=== PATIENT | male | born 1950 | race Caucasian/White ===

== ENCOUNTER 2019-04-08 11:54 | Observation (INO) | payer BC, MEDICARE ==
[~2019-04-08] VITALS: Ht 177.8 cm; Wt 73.6 kg
[2019-04-08] VITALS (12 sets, daily range): BP systolic 132–166; BP diastolic 60–84
[2019-04-08 12:33] LABS: BASO # 0.1 10^3/uL (0.0-0.2); BASO % 1.1 % (0.0-1.0); EOS % 0.5 % (0.0-3.0); HEMATOCRIT 22.7 % (42.0-52.0); LYMPH # 0.8 10^3/uL (1.5-5.0); LYMPH % 14.5 % (24.0-44.0); MEAN CORPUSCULAR HEMOGLOBIN 20.9 pg (27.0-33.0); MEAN CORPUSCULAR HGB CONC 28.6 g/dl (32.0-36.5); MONO # 0.5 10^3/uL (0.0-0.8); MONO % 8.4 % (0.0-5.0); NEUTROPHILS # 4.1 10^3/uL (1.5-8.5); NEUTROPHILS % 75.3 % (36.0-66.0); PLATELET COUNT, AUTOMATED 280 10^3/uL (150-450); RED BLOOD COUNT 3.11 10^6/uL (4.30-6.10); WHITE BLOOD COUNT 5.5 10^3/uL (4.0-10.0)
[2019-04-08 12:40] LABS: HEMOGLOBIN 6.5 g/dl (13.5-17.5)
[2019-04-08 12:42] LABS: INR 1.14; PARTIAL THROMBOPLASTIN TIME 25.6 SECONDS (25.0-38.4); PROTHROMBIN TIME 14.4 SECONDS (11.8-14.0)
[2019-04-08 13:02] LABS: ALBUMIN 3.8 GM/DL (3.2-5.2); ALT/SGPT 27 U/L (12-78); BILIRUBIN,DIRECT 0.3 MG/DL (0.0-0.2); BILIRUBIN,TOTAL 1.2 MG/DL (0.2-1.0); BLOOD UREA NITROGEN 18 MG/DL (7-18); CALCIUM LEVEL 9.1 MG/DL (8.8-10.2); CARBON DIOXIDE LEVEL 26 MEQ/L (21-32); CHLORIDE LEVEL 109 MEQ/L (98-107); CREATININE FOR GFR 1.15 MG/DL (0.70-1.30); GLOMERULAR FILTRATION RATE > 60.0 (>49); GLUCOSE, FASTING 154 MG/DL (70-100); POTASSIUM SERUM 4.4 MEQ/L (3.5-5.1); SODIUM LEVEL 141 MEQ/L (136-145); TOTAL PROTEIN 6.5 GM/DL (6.4-8.2)
[2019-04-08] MEDS ORDERED: SIMV20TA2 PO (13:19)
[2019-04-08] MEDS ORDERED: EZET10TA21 PO (13:19)
[2019-04-08] MEDS ORDERED: CLAR10CA3 PO (13:43)
[2019-04-08] MEDS ORDERED: ALEV220T22 PO (13:43)
[2019-04-08] MEDS ORDERED: SIMV40TA2 PO (13:43)
[2019-04-08] MEDS ORDERED: ASPI81TA85 PO (13:43)
[2019-04-08] MEDS ORDERED: TUMS500C PO (13:43)
[2019-04-08 14:00] LABS: CK-MB VALUE MASS 1.6 NG/ML (<3.6); CPK CREATINE PHOSPHOKINASE 91 U/L (39-308); MB/CK RELATIVE INDEX 1.76 (< OR =4); TROPONIN I < 0.02 NG/ML (< 0.10)
[2019-04-08] MEDS ORDERED: CALCIUM CARBONATE 500 MG CHEW U/D PO PRN (14:30)
[2019-04-08 15:12] LABS: FERRITIN 4 NG/ML (26-388); IRON (FE) 25 UG/DL (65-175); PERCENT SATURATION 5.3 % (19.7-50.0); TOTAL IRON BINDING CAPACITY 476 UG/DL (250-450)
--- NOTE | 2019-04-08 15:22 | HPEPDOC ---
[facility] Medical History & Physical Date of Admission Apr 08, 2019 Date of Service: Apr 08, 2019 History and Physical CHIEF COMPLAINT: Shortness of breath HISTORY OF PRESENT ILLNESS: This is a patient is a 68-year-old man for the last several weeks as he progressively worsening dyspnea on exertion as well as some increased fatigue and lightheadedness upon standing. He believed that he had Lyme disease and went to his primary care provider who did check blood work several days ago he was notified today that his hemoglobin was quite low and presented to the hospital. He tells me that earlier this morning she was working with his chainsaw cutting down trees and although somewhat short of breath he is still remained quite active without difficulty. The patient denies any recent dark tarry stools. He has had a history of using NSAIDs he takes Aleve twice a day as well as a baby aspirin. He does have some intermittent indigestion but nothing worse or significant change in the recent past. Otherwise patient denies weight loss, hair loss, headache, visual changes, chest pain, cough, nausea, vomiting, diarrhea, abdominal pain, muscle aches, worsening arthritis, change in mood PAST MEDICAL HISTORY: 1 dyslipidemia. 2 sciatica. 3 heartburn. HOME MEDICATIONS: Please see below. ALLERGIES: Please see below PAST SURGICAL HISTORY: 1 left shoulder arthroscopy. 2 right knee surgery. 3 microdiscectomy For lipoma removal. SOCIAL HISTORY: Lives with: Debilitated who has MS for whom he is the primary caregiver, Employment: Retired nurse healthcare manager of [employer], Tobacco use: 10 pack year history quit 38 years ago. ETOH: 2 drinks per day, Illicit d rug use: Denies, CODE STATUS: Full code FAMILY HISTORY:Reviewed and noncontributory REVIEW OF SYSTEMS: 10 systems reviewed and negative other than HPI PHYSICAL EXAMINATION: VITAL SIGNS: Temperature 97.9, pulse 86, respiratory rate 20, blood pressure 162/78, pulse oximetry 100 % on room air. GENERAL: Pleasant slim man sitting up wearing street close seated in a chair awake alert oriented speaking in complete sentences no acute distress he appears only mildly pallorous HEENT: Moist mucous membranes no elevation in CVP CARDIOVASCULAR: S1 S2 regular no additional heart sounds appreciated. RESPIRATORY: Clear to auscultation bilaterally. ABDOMINAL: Bowel sounds present abdomen soft and nontender U to deep palpation EXTREMITIES: No clubbing cyanosis or edema NEUROLOGICAL: Spontaneously moves all 4 extremities cranial 2 through 12 grossly intact no gross focal deficits appreciated PSYCHOLOGICAL: Appropriate LABORATORY DATA: See below. MICROBIOLOGY: Please see below. IMAGING: None ASSESSMENT & PLAN: This is a 68-year-old man who presents to symptomatic anemia likely secondary to GI losses. PROBLEMS: 1 symptomatic anemia: Likely secondary to GI losses was reportedly occult stool for positive positive in the emergency room and I will check iron studies provided with iron supplementation he is microcytic in nature given the degree of his low hemoglobin and mild dizziness symptoms I suspect this is a slow progressive bleed for which his body has adjusted quite well. He has been consented in the emergency room and we will be transfusing 2 units of PRBCs. I suspect may be related to his NSAID usage. I will hold any further relief continue with the baby aspirin primary gabapentin in place of this. He recently had a colonoscopy 2 years ago and during which he was told it was completely normal he had 1 small rectal polyp that was removed this was completed at his home in [place]. Patient prefers home as soon as possible in order to care for his debilitated his son will stay with her this evening. We'll monitor him overnight and reevaluate his hemoglobin in the a.m. he would likely benefit from further evaluation with repeat colonoscopy and endoscopy. I'll provide him with a PPI as well as Carafate and a clear liquid diet for now and check his orthostatics 2 sciatica: We are holding Aleve upright with gabapentin. 3 dyslipidemia with continue with 60 mg of atorvastatin. As well as his sodium 4 seasonal allergies: We'll provide him with Claritin. DVT PROPHYLAXIS: Compression stockings encourage ambulation [facility]ITION: [facility] This note was generated in part or whole with a voice recognition software. Voice recognition is usually quite accurate but often errors do occur. I apologize for any typographical errors that were not detected and corrected. Vital Signs Vital Signs Date Time Temp Pulse Resp B/P (MAP) Pulse Ox O2 Delivery O2 Flow Rate FiO2 04/08/19 14:43 97.9 86 20 162/78 100 Room Air Laboratory Data Labs 24H Laboratory Tests 2 04/08/19 12:21: Immature Granulocyte % (Auto) 0.2, Neutrophils (%) (Auto) 75.3H, Lymphocytes (%) (Auto) 14.5L, Monocytes (%) (Auto) 8.4H, Eosinophils (%) (Auto) 0.5, Basophils (%) (Auto) 1.1H, Neutrophils # (Auto) 4.1, Lymphocytes # (Auto) 0.8L, Monocytes # (Auto) 0.5, Eosinophils # (Auto) 0.0, Basophils # (Auto) 0.1, Nucleated Red Blood Cells % (auto) 0.0, Prothrombin Time 14.4H, Prothromb Time International Ratio 1.14, Activated Partial Thromboplast Time 25.6, Anion Gap 6L, Glomerular Filtration Rate > 60.0, Calcium Level 9.1, Iron Level 25L, Total Iron Binding Capacity 476H, Transferrin % Saturation 5.3L, Ferritin 4L, Total Bilirubin 1.2H, Direct Bilirubin 0.3H, Aspartate Amino Transf (AST/SGOT) 24, Alanine Aminotransferase (ALT/SGPT) 27, Alkaline Phosphatase 48, Total Creatine Kinase 91, Creatine Kinase MB 1.6, Creatine Kinase MB Relative Index 1.76, Troponin I < 0.02, Total Protein 6.5, Albumin 3.8, Albumin/Globulin Ratio 1.41 04/08/19 12:28: POC Glucose (Misc Panel) 150H, POC Sodium (Misc Panel) 139, POC Potassium (Misc Panel) 4.2, POC Chloride (Misc Panel) 103, POC Total CO2 (Misc Panel) 24.0, POC Blood Urea Nitrogen (Misc Panel 17, POC Ionized Calcium (Misc Panel) 4.7, POC Creatinine (Misc Panel) 1.1, POC Hematocrit (Misc Panel) 21.0L CBC/BMP Laboratory Tests 04/08/19 12:21 Home Medications Scheduled Aspirin (Aspir 81) 81 Mg Tablet.dr, 81 MG PO DAILY Ezetimibe (Ezetimibe) 10 Mg Tablet, 10 MG PO DAILY Loratadine (Claritin) 10 Mg Capsule, 10 MG PO QHS Naproxen Sodium (Aleve) 220 Mg Tablet, 220 MG PO BID Simvastatin (Simvastatin) 20 Mg Tablet, 20 MG PO DAILY TAKES WITH 40MG DOSE FOR 60MG TOTAL DAILY DOSE Simvastatin (Simvastatin) 40 Mg Tablet, 40 MG PO DAILY TAKES WITH 20MG DOSE FOR 60MG TOTAL DAILY DOSE Scheduled PRN Calcium Carbonate (Tums) 200 Mg Tab.chew, 500 MG PO for HEARTBURN/INDIGESTION Allergies Coded Allergies: No Known Allergies (Unverified , 04/08/19) A-FIB/CHADSVASC A-FIB History Current/History of A-Fib/PAF?: No RENITA JONES MD Apr 08, 2019 15:22
[2019-04-08] MEDS: GABAPENTIN 100 MG CAP PO SCH ×2 (16:33→20:47)
[2019-04-08] MEDS: SUCRALFATE 1 GM TAB PO SCH ×2 (16:33→20:47)
[2019-04-08] MEDS: PANTOPRAZOLE 40MG INJ (PROTONIX) (C9113) IV SCH ×2 (18:13→20:47)
[2019-04-08 19:28] LABS: HEMATOCRIT 27.3 % (42.0-52.0); HEMOGLOBIN 8.1 g/dl (13.5-17.5)
[2019-04-08] MEDS: FERROUS SULFATE 325MG TAB PO SCH (20:47)
[2019-04-08] MEDS ORDERED: LORATADINE 10 MG TAB PO SCH (21:00)
[2019-04-09 06:00] VITALS: BP 121/65
[2019-04-09 06:20] LABS: HEMATOCRIT 26.6 % (42.0-52.0); HEMOGLOBIN 8.1 g/dl (13.5-17.5); MEAN CORPUSCULAR HEMOGLOBIN 22.4 pg (27.0-33.0); MEAN CORPUSCULAR HGB CONC 30.5 g/dl (32.0-36.5); MEAN CORPUSCULAR VOLUME 73.7 fl (80.0-96.0); PLATELET COUNT, AUTOMATED 261 10^3/uL (150-450); RED BLOOD COUNT 3.61 10^6/uL (4.30-6.10); WHITE BLOOD COUNT 4.6 10^3/uL (4.0-10.0)
[2019-04-09 06:47] LABS: BLOOD UREA NITROGEN 10 MG/DL (7-18); CALCIUM LEVEL 8.4 MG/DL (8.8-10.2); CARBON DIOXIDE LEVEL 25 MEQ/L (21-32); CHLORIDE LEVEL 112 MEQ/L (98-107); CREATININE FOR GFR 0.97 MG/DL (0.70-1.30); GLOMERULAR FILTRATION RATE > 60.0 (>49); GLUCOSE, FASTING 87 MG/DL (70-100); POTASSIUM SERUM 3.8 MEQ/L (3.5-5.1); SODIUM LEVEL 143 MEQ/L (136-145)
[2019-04-09 06:57] VITALS: BP_SYST 129; BP_SYST 130; BP_SYST 131; BP_DIAS 75; BP_DIAS 76; BP_DIAS 78
[2019-04-09] MEDS: GABAPENTIN 100 MG CAP PO SCH (08:38)
[2019-04-09] MEDS: FERROUS SULFATE 325MG TAB PO SCH (08:38)
[2019-04-09] MEDS: PANTOPRAZOLE 40MG INJ (PROTONIX) (C9113) IV SCH (08:39)
[2019-04-09] MEDS: SUCRALFATE 1 GM TAB PO SCH (08:39)
[2019-04-09] MEDS ORDERED: SIMVASTATIN 40 MG TAB PO SCH (09:00)
[2019-04-09] MEDS ORDERED: ASPIRIN 81 MG ENTERIC TAB PO SCH (09:00)
[2019-04-09] MEDS ORDERED: SIMVASTATIN 20 MG TAB PO SCH (09:00)
[2019-04-09] MEDS ORDERED: EZETIMIBE 10 MG TAB (ZETIA) PO SCH (09:00)
[2019-04-09] MEDS ORDERED: PROT1TAB2 PO ×2 (09:53→10:11)
[2019-04-09] MEDS ORDERED: FERR325T18 PO (09:53)
[2019-04-09] MEDS ORDERED: GABA-1171 PO (09:53)
--- NOTE | 2019-04-09 10:51 | DS.PDOC ---
Discharge Summary General Date of Admission Apr 08, 2019 at 11:55 Date of Discharge 04/09/2019 Attending Physician: RENITA JONES MD Discharge Summary PROCEDURES PERFORMED DURING STAY: None. ADMITTING DIAGNOSES: 1. Symptomatic anemia secondary to GI loss. 2. Sciatica. 3. Dyslipidemia. DISCHARGE DIAGNOSES: 1. Symptomatic anemia secondary to GI loss and iron deficiency. 2. Sciatica. 3. Dyslipidemia. COMPLICATIONS/CHIEF COMPLAINT: Gi Bleed. HISTORY OF PRESENT ILLNESS: 68-year-old male who presented with 1 month history of progressively worsening fatigue, lightheadedness upon standing, and dyspnea on exertion. He states he was concerned that his symptoms were due to Lyme dise ase and he saw his PCP who ordered some blood tests. He states he received a call to the emergency room due to a low hemoglobin level. He has a history of NSAID use with Aleve twice daily for sciatica pain in his right leg. Otherwise, he denied weight loss, hair loss, headache, visual changes, chest pain, cough, nausea, vomiting, diarrhea, abdominal pain, muscle aches, worsening arthritis, change in mood. Laboratory testing revealed an H&H of 6.5/22.7. HOSPITAL COURSE: Patient was admitted for observation and was transfused with 2 units packed red blood cells. His H&H improved to 8.1/27.3. His home Aleve was held due to its association with gastric ulcers. Dr. Colud was consult to consider upper endoscopy and it was decided he should follow up for this in the outpatient setting with his own cash grain farmer. Patient was also started on Protonix twice a day which she will continue on discharge. For his right sciatica pain, the patient was started on gabapentin and can follow up to ti trate up on this as needed with his primary care physician. Iron studies also revealed iron deficiency anemia, which could contribute to his overall symptomatic anemia. The patient was started on oral iron supplementation and will continue this upon discharge. On day of discharge, the patient was found to be stable and safe for discharge. DISCHARGE MEDICATIONS: Please see below. ALLERGIES: Please see below. PHYSICAL EXAMINATION ON DISCHARGE: VITAL SIGNS: Please see below. GENERAL: Alert, comfortable, in no acute distress HEENT: Normocephalic, atraumatic, PERRLA, EOMI, moist mucous membranes NECK: Supple, trachea midline, no lymphadenopathy, no JVD CARDIOVASCULAR: Regular rate and rhythm, normal S1 and S2. No murmurs, rubs, or gallops RESPIRATORY: Clear to auscultation bilaterally with equal air entry bilaterally. No wheezing, rhonchi, or rales. ABDOMEN: Soft, nontender, nondistended, bowel sounds present, no masses or hepatosplenomegaly appreciated EXTREMITIES: No cyanosis or edema. Pulses 2+/4 in bilateral upper and lower extremities SKIN: [place], warm, dry NEUROLOGIC: Alert and oriented 3 to person, place and time. Cranial nerves 2-12 grossly intact. No focal deficits appreciated PSYCHIATRIC: Mood and affect appropriate LABORATORY DATA: Please see below. IMAGING: None PROGNOSIS: Good ACTIVITY: As tolerated. DIET: As tolerated DISCHARGE PLAN: Home DISPOSITION: Home. DISCHARGE INSTRUCTIONS: 1. Follow-up with your PCP in 7-10 days 2. Stop taking Aleve and continue taking the gabapentin which was started in the hospital for your sciatica pain. 3. Continue taking iron supplement and Protonix twice daily, which were started in the hospital 4. Follow up for EGD with your cash grain farmer in 1-2 weeks 5. If your symptoms return or your condition worsens, please call your PCP or return to the ED for further evaluation. ITEMS TO FOLLOWUP ON ON OUTPATIENT: 1. Anemia - suggest follow up with H/H, continue iron supplement 2. GI bleed - follow up with GI doctor for EGD within the next 1-2 weeks, continue PPI therapy twice a day 3. Sciatica - Avoid NSAIDs in the setting of GI bleed, consider continuing Gabapentin and titrating up on this or re-evaluate for other treatment options. DISCHARGE CONDITION: Stable. I saw and evaluated the patient. I agree with the findings and plan of care as documented in the documenters note. I spent 45 minutes coordinating this patient's discharge. Vital Signs/I&Os Vital Signs Date Time Temp Pulse Resp B/P (MAP) Pulse Ox O2 Delivery O2 Flow Rate FiO2 04/09/19 06:57 76 131/78 (95) 80 130/76 (94) 81 129/75 (93) 04/09/19 06:00 98.1 18 98 Room Air I&O- Last 24 Hours up to 6 AM 04/09/19 06:00 Intake Total 1710 ml Output Total 2500 ml Balance -790 ml Laboratory Data Labs 24H Laboratory Tests 2 04/08/19 11:55: Lab Scanned Report LAB OTHER 04/08/19 12:21: Immature Granulocyte % (Auto) 0.2, Neutrophils (%) (Auto) 75.3H, Lymphocytes (%) (Auto) 14.5L, Monocytes (%) (Auto) 8.4H, Eosinophils (%) (Auto) 0.5, Basophils (%) (Auto) 1.1H, Neutrophils # (Auto) 4.1, Lymphocytes # (Auto) 0.8L, Monocytes # (Auto) 0.5, Eosinophils # (Auto) 0.0, Basophils # (Auto) 0.1, Reticulocyte # (auto) 42.7, Nucleated Red Blood Cells % (auto) 0.0, Percent Reticulocyte Count 1.4, Reticulocyte Hemoglobin Equivalent 14.7L, Prothrombin Time 14.4H, Prothromb Time International Ratio 1.14, Activated Partial Thromboplast Time 25.6, Anion Gap 6L, Glomerular Filtration Rate > 60.0, Calcium Level 9.1, Iron Level 25L, Total Iron Binding Capacity 476H, Transferrin % Saturation 5.3L, Ferritin 4L, Total Bilirubin 1.2H, Direct Bilirubin 0.3H, Aspartate Amino Transf (AST/SGOT) 24, Alanine Aminotransferase (ALT/SGPT) 27, Alkaline Phosphatase 48, Total Creatine Kinase 91, Creatine Kinase MB 1.6, Creatine Kinase MB Relative Index 1.76, Troponin I < 0.02, Total Protein 6.5, Albumin 3.8, Albumin/Globulin Ratio 1.41 04/08/19 12:28: POC Glucose (Misc Panel) 150H, POC Sodium (Misc Panel) 139, POC Potassium (Misc Panel) 4.2, POC Chloride (Misc Panel) 103, POC Total CO2 (Misc Panel) 24.0, POC Blood Urea Nitrogen (Misc Panel 17, POC Ionized Calcium (Misc Panel) 4.7, POC Creatinine (Misc Panel) 1.1, POC Hematocrit (Misc Panel) 21.0L 04/09/19 05:54: Nucleated Red Blood Cells % (auto) 0.0, Anion Gap 6L, Glomerular Filtration Rate > 60.0, Calcium Level 8.4L CBC/BMP Laboratory Tests 04/08/19 12:21 04/08/19 19:02 04/09/19 05:54 Discharge Medications Scheduled Aspirin (Aspir 81) 81 Mg Tablet.dr, 81 MG PO DAILY, (Reported) Ezetimibe (Ezetimibe) 10 Mg Tablet, 10 MG PO DAILY, (Reported) Ferrous Sulfate (Ferrous Sulfate) 325 Mg Tablet, 325 MG PO BID Gabapentin (Gabapentin) 100 Mg Capsule, 100 MG PO TID Loratadine (Claritin) 10 Mg Capsule, 10 MG PO QHS, (Reported) Pantoprazole Sodium (Protonix) 40 Mg Tablet.dr, 40 MG PO BID Simvastatin (Simvastatin) 20 Mg Tablet, 20 MG PO DAILY, (Reported) TAKES WITH 40MG DOSE FOR 60MG TOTAL DAILY DOSE Simvastatin (Simvastatin) 40 Mg Tablet, 40 MG PO DAILY, (Reported) TAKES WITH 20MG DOSE FOR 60MG TOTAL DAILY DOSE Scheduled PRN Calcium Carbonate (Tums) 200 Mg Tab.chew, 500 MG PO for HEARTBURN/INDIGESTION, (Reported) Allergies Coded Allergies: No Known Allergies (Unverified , 04/08/19) JANE SCHULTE PGY-1 Apr 09, 2019 10:51 RENITA JONES MD Apr 10, 2019 11:05
--- NOTE | 2019-04-09 14:22 | CR ---
DATE OF CONSULTATION: 04/09/2019 REASON FOR CONSULTATION: Anemia and gastrointestinal (GI) bleed. BRIEF HISTORY OF PRESENT ILLNESS: The patient is a 68-year-old male who has had some progressive dyspnea and upon workup in the emergency room was found to have significant anemia. This has been a slowly but progressive shortness breath/fatigue that he has had, and he has had a history of taking Aleve twice a day as well as baby aspirin and has had a colonoscopy within the last couple years which have been normal. He has not had any bright red blood per rectum. Really does not complain of any melanotic stools. Does have a couple alcoholic drinks a day. His past medical history is significant for a history dyslipidemia, sciatica and minimal reflux. Status post left shoulder arthroscopy, left knee surgery, microdiscectomy, and lipoma. Physical exam reveals a 68-year-old male who looks stated age. HEENT is unremarkable. Neck supple without adenopathy. Lungs are clear to auscultation without crackles, wheezes or rhonchi. Heart is regular without murmur. Abdomen is soft, nondistended, nontender. No guarding. No rebound. No peritoneal signs are appreciated. IMPRESSION/PLAN: The patient has some anemia most likely an upper GI source given his nonsteroidal use, and I agree that we should aggressively treat him with some proton pump inhibitors. Given that he is feeling well today and his hematocrit has been stable, I do feel that this could be performed as an outpatient given that he has some social issues that he has to deal with i.e. his who is debilitated and needs 24-hour care. Thus, my recommendation is that you discharge him home on some proton pump inhibitors (PPIs) twice a day, avoid nonsteroidals and to followup with his tele grout sewer line repairer in [place] in the next few weeks. If he is not able to get in with the tele grout sewer line repairer, then followup with his primary care within the next week or so.
== END 2019-04-09 10:51 | disposition home or self-care (01) ==
LOC: M ED 11:54 → M ED INP 11:55 → M MSPAV 15:30
PROVIDERS: ADMIT Internal Medicine; ATTEND Internal Medicine
DX: D50.0 Iron deficiency anemia secondary to blood loss (chronic) (principal); K92.2 Gastrointestinal hemorrhage, unspecified; M54.31 Sciatica, right side; E78.5 Hyperlipidemia, unspecified; R06.02 Shortness of breath; R53.83 Other fatigue; K21.9 Gastro-esophageal reflux disease without esophagitis; Z79.899 Other long term (current) drug therapy; Z79.82 Long term (current) use of aspirin; Z87.891 Personal history of nicotine dependence; Z72.89 Other problems related to lifestyle
CPT/HCPCS: 36415; 36430; 80047; 80048; 80076; 82550; 82553; 82728; 83550; 84484; 85014; 85018; 85025; 85027; 85046; 85610; 85730; 86850; 86900; 86901; 86920; 96374; 96376; 99284; C9113; G0378; P9016

== ENCOUNTER → 2019-09-08 | Outpatient (REF) | payer MEDICARE ==
[~2019-09-08] MED LIST: ALEV220T22 PO; ASPI81TA85 PO; CLAR10CA3 PO; EZET10TA21 PO; FERR325T18 PO; GABA-1171 PO; PROT1TAB2 PO; SIMV20TA22 PO; SIMV40TA20 PO; TUMS500C PO
[2019-09-08 11:34] LABS: HEMATOCRIT 34.5 % (42.0-52.0); HEMOGLOBIN 10.3 g/dl (13.5-17.5); MEAN CORPUSCULAR HGB CONC 29.9 g/dl (32.0-36.5); MEAN CORPUSCULAR VOLUME 83.7 fl (80.0-96.0); PLATELET COUNT, AUTOMATED 258 10^3/uL (150-450); RED BLOOD COUNT 4.12 10^6/uL (4.30-6.10); WHITE BLOOD COUNT 4.1 10^3/uL (4.0-10.0)
== END ==
LOC: M LABDRAWC 11:23
DX: D50.9 Iron deficiency anemia, unspecified (principal)

== ENCOUNTER → 2019-09-22 | Outpatient (REF) | payer MEDICARE ==
[2019-09-22 12:41] LABS: BASO # 0.1 10^3/uL (0.0-0.2); BASO % 1.6 % (0.0-1.0); EOS # 0.1 10^3/uL (0.0-0.5); EOS % 3.9 % (0.0-3.0); HEMATOCRIT 37.5 % (42.0-52.0); HEMOGLOBIN 11.8 g/dl (13.5-17.5); LYMPH % 30.9 % (24.0-44.0); MEAN CORPUSCULAR HEMOGLOBIN 27.3 pg (27.0-33.0); MEAN CORPUSCULAR HGB CONC 31.5 g/dl (32.0-36.5); MEAN CORPUSCULAR VOLUME 86.8 fl (80.0-96.0); MONO # 0.4 10^3/uL (0.0-0.8); MONO % 12.9 % (0.0-5.0); NEUTROPHILS # 1.6 10^3/uL (1.5-8.5); NEUTROPHILS % 50.7 % (36.0-66.0); PLATELET COUNT, AUTOMATED 190 10^3/uL (150-450); RED BLOOD COUNT 4.32 10^6/uL (4.30-6.10); WHITE BLOOD COUNT 3.1 10^3/uL (4.0-10.0)
[2019-09-22 13:05] LABS: PERCENT SATURATION 61.3 % (19.7-50.0)
== END ==
LOC: M LABDRAWC 12:06
PROVIDERS: ATTEND Family Medicine
DX: D50.9 Iron deficiency anemia, unspecified (principal)

== ENCOUNTER → 2019-09-29 | Outpatient (CLI) | payer MEDICARE ==
[~2019-09-29] MED LIST changes: +PROHANCE 279.3MG/ML 15ML VIAL As Ordered ONE
--- NOTE | 2019-10-03 12:22 | REP ---
MRI ABDOMEN WITH AND WITHOUT CONTRAST: COMPARISON: CT from [facility], 09/16/2019, which showed a possible hemangioma inferiorly in the right lobe. TECHNIQUE: Multiple sequences obtained in the axial and coronal planes prior to and following the intravenous administration of 14 mL ProHance. In the left lobe of the liver, two hyperintense nodules are seen on T2-weighted images. These do not demonstrate any enhancement. These are consistent with benign cysts. These measure 1.3 cm in diameter and 7 mm in diameter. In the very inferior aspect of the right lobe of the liver, there is a hyperintense nodule which demonstrates initial peripheral enhancement with diffuse enhancement which persists on delayed images up to 10 minutes postinjection. This represents a benign hemangioma. It measures 8 mm in diameter. No other liver nodule is seen. The gallbladder is grossly unremarkable. Spleen is normal in size with no abnormality. Adrenal glands, pancreas, and kidneys are normal. There is no adenopathy or free fluid in the abdomen. IMPRESSION: Two small cysts in the left lobe of the liver. One small hemangioma in the inferior right lobe of the liver. No other abnormalities are seen. Unreviewed
== END ==
LOC: M RAD 09:59
PROVIDERS: ATTEND Family Medicine
DX: D37.6 Neoplasm of uncertain behavior of liver, gallbladder and bile ducts (principal)
CPT/HCPCS: 74183; A9576

== ENCOUNTER → 2019-10-06 | Outpatient (REF) | payer MEDICARE ==
[~2019-10-06] MED LIST changes: -PROHANCE 279.3MG/ML 15ML VIAL As Ordered ONE
[2019-10-06 11:49] LABS: BASO % 1.3 % (0.0-1.0); EOS # 0.1 10^3/uL (0.0-0.5); EOS % 3.9 % (0.0-3.0); HEMATOCRIT 33.6 % (42.0-52.0); HEMOGLOBIN 10.7 g/dl (13.5-17.5); LYMPH % 31.2 % (24.0-44.0); MEAN CORPUSCULAR HEMOGLOBIN 27.9 pg (27.0-33.0); MEAN CORPUSCULAR HGB CONC 31.8 g/dl (32.0-36.5); MEAN CORPUSCULAR VOLUME 87.7 fl (80.0-96.0); MONO # 0.4 10^3/uL (0.0-0.8); MONO % 12.3 % (0.0-5.0); NEUTROPHILS # 1.6 10^3/uL (1.5-8.5); PLATELET COUNT, AUTOMATED 206 10^3/uL (150-450); RED BLOOD COUNT 3.83 10^6/uL (4.30-6.10); WHITE BLOOD COUNT 3.1 10^3/uL (4.0-10.0)
== END ==
LOC: M LABDRAWC 11:36
PROVIDERS: ATTEND Family Medicine
DX: D50.9 Iron deficiency anemia, unspecified (principal)

== ENCOUNTER → 2019-10-20 | Outpatient (REF) | payer MEDICARE ==
[2019-10-20 11:52] LABS: BASO # 0.1 10^3/uL (0.0-0.2); BASO % 1.4 % (0.0-1.0); EOS # 0.1 10^3/uL (0.0-0.5); EOS % 3.1 % (0.0-3.0); HEMATOCRIT 39.2 % (42.0-52.0); HEMOGLOBIN 13.1 g/dl (13.5-17.5); LYMPH # 0.9 10^3/uL (1.5-5.0); LYMPH % 24.4 % (24.0-44.0); MEAN CORPUSCULAR HGB CONC 33.4 g/dl (32.0-36.5); MEAN CORPUSCULAR VOLUME 89.9 fl (80.0-96.0); MONO # 0.4 10^3/uL (0.0-0.8); MONO % 11.4 % (0.0-5.0); NEUTROPHILS # 2.1 10^3/uL (1.5-8.5); NEUTROPHILS % 59.4 % (36.0-66.0); PLATELET COUNT, AUTOMATED 221 10^3/uL (150-450); RED BLOOD COUNT 4.36 10^6/uL (4.30-6.10); WHITE BLOOD COUNT 3.5 10^3/uL (4.0-10.0)
[2019-10-20 12:08] LABS: PERCENT SATURATION 91.7 % (19.7-50.0)
== END ==
LOC: M LABDRAWC 11:38
PROVIDERS: ATTEND Family Medicine
DX: D50.9 Iron deficiency anemia, unspecified (principal)

== ENCOUNTER → 2019-11-04 | Outpatient (REF) | payer MEDICARE ==
[2019-11-04 17:04] LABS: BASO # 0.1 10^3/uL (0.0-0.2); BASO % 1.6 % (0.0-1.0); EOS # 0.1 10^3/uL (0.0-0.5); EOS % 1.9 % (0.0-3.0); HEMATOCRIT 37.7 % (42.0-52.0); HEMOGLOBIN 12.2 g/dl (13.5-17.5); LYMPH # 0.9 10^3/uL (1.5-5.0); LYMPH % 25.7 % (24.0-44.0); MEAN CORPUSCULAR HEMOGLOBIN 29.5 pg (27.0-33.0); MEAN CORPUSCULAR HGB CONC 32.4 g/dl (32.0-36.5); MEAN CORPUSCULAR VOLUME 91.3 fl (80.0-96.0); MONO # 0.5 10^3/uL (0.0-0.8); MONO % 12.6 % (0.0-5.0); NEUTROPHILS # 2.1 10^3/uL (1.5-8.5); NEUTROPHILS % 57.9 % (36.0-66.0); PLATELET COUNT, AUTOMATED 214 10^3/uL (150-450); RED BLOOD COUNT 4.13 10^6/uL (4.30-6.10); WHITE BLOOD COUNT 3.7 10^3/uL (4.0-10.0)
[2019-11-04 17:30] LABS: PERCENT SATURATION 44.6 % (19.7-50.0)
== END ==
LOC: M LABDRAWC 15:40
PROVIDERS: ATTEND Family Medicine
DX: D50.9 Iron deficiency anemia, unspecified (principal)

== ENCOUNTER → 2020-04-27 | Outpatient (REF) | payer MEDICARE ==
[~2020-04-27] MED LIST changes: -ASPI81TA85 PO; +ASPI81TA86 PO
[2020-04-27 11:32] LABS: BASO # 0.1 10^3/uL (0.0-0.2); BASO % 1.5 % (0.0-1.0); EOS # 0.1 10^3/uL (0.0-0.5); EOS % 3.2 % (0.0-3.0); HEMATOCRIT 36.1 % (42.0-52.0); HEMOGLOBIN 12.2 g/dl (13.5-17.5); LYMPH # 1.1 10^3/uL (1.5-5.0); LYMPH % 26.2 % (24.0-44.0); MEAN CORPUSCULAR HGB CONC 33.8 g/dl (32.0-36.5); MEAN CORPUSCULAR VOLUME 94.8 fl (80.0-96.0); MONO # 0.5 10^3/uL (0.0-0.8); MONO % 11.9 % (0.0-5.0); NEUTROPHILS # 2.3 10^3/uL (1.5-8.5); PLATELET COUNT, AUTOMATED 251 10^3/uL (150-450); RED BLOOD COUNT 3.81 10^6/uL (4.30-6.10)
== END ==
LOC: M LABDRAWC 10:56
PROVIDERS: ATTEND Family Medicine
DX: D50.9 Iron deficiency anemia, unspecified (principal)